=== PATIENT | male | born 1955 | race Caucasian/White ===

== ENCOUNTER 2020-12-07 18:50 | Inpatient (IN) | payer MEDICARE ==
[~2020-12-07] VITALS: Ht 175.3 cm; Wt 89.1 kg
[~2020-12-07 18:50] MED LIST: ACCUPRIL40 MG PO; ASPIRIN EC81 MG PO; BACTRIM D.S. TAB1 EA PO; CATAPRES0.1 MG PO; CHLORASEPTIC LOZ PO; CHLORASEPTIC177 ML PO; FELODIPINE ER10 MG PO; GLUCOVANCE 5-51 EACH PO; LOPRESSOR50 MG PO; NEURONTIN300 MG PO; NITRO-TIME6.5 MG PO; PERCOCET 5/325 T1 EA PO; PROTONIX40 MG PO; TOPROL XL50 MG PO; ZOCOR40 MG PO
[2020-12-07 20:17] LABS: HEMOGLOBIN 11.1 gm/dl (14.0-17.5); RED BLOOD COUNT 3.41 M/UL (4.20-5.50); WHITE BLOOD COUNT 7.2 K/UL (4.5-11.0)
[2020-12-08] MEDS ORDERED: AMLODIPINE BESY10 MG PO (00:50)
[2020-12-08] MEDS ORDERED: ISOSORBIDE MONO30 MG PO (00:50)
[2020-12-08] MEDS ORDERED: RANOLAZINE ER500 MG PO (00:51)
[2020-12-08] MEDS ORDERED: CLOPIDOGREL75 MG PO (00:51)
[2020-12-08] MEDS ORDERED: METFORMIN HCL1000 MG PO (00:52)
[2020-12-08] MEDS ORDERED: LISINOPRIL-HCT1 EAC1 PO (00:52)
[2020-12-08 02:43] LABS: HEMOGLOBIN 10.8 gm/dl (14.0-17.5); RED BLOOD COUNT 3.31 M/UL (4.20-5.50)
[2020-12-08 02:47] LABS: WHITE BLOOD COUNT 9.4 K/UL (4.5-11.0)
[2020-12-08] MEDS ORDERED: HUMALOG 10100 UNITS/ SC (11:23)
[2020-12-08] MEDS ORDERED: ATORVASTATIN CA20 MG PO (11:23)
== END 2020-12-08 12:48 | disposition short-term general hospital (02) | DRG 280 ==
LOC: ER1 18:50 → PROG CARE 21:09 → CDU 21:09 → PROG CARE 12-08 00:07
PROVIDERS: Internal Medicine; ADMIT Internal Medicine
PROC: 4A023N7 Measurement of Cardiac Sampling and Pressure, Left Heart, Percutaneous Approach (ICD-10-PCS; principal; 2020-12-07)
PROC: B211YZZ Fluoroscopy of Multiple Coronary Arteries using Other Contrast (ICD-10-PCS; 2020-12-07)
PROC: 4A033BC Measurement of Arterial Pressure, Coronary, Percutaneous Approach (ICD-10-PCS; 2020-12-07)
DX: I21.4 Non-ST elevation (NSTEMI) myocardial infarction (principal); J96.01 Acute respiratory failure with hypoxia; J81.0 Acute pulmonary edema; E87.3 Alkalosis; N17.9 Acute kidney failure, unspecified; I13.0 Hypertensive heart and chronic kidney disease with heart failure and stage 1 through stage 4 chronic kidney disease, or unspecified chronic kidney disease; I25.10 Atherosclerotic heart disease of native coronary artery without angina pectoris; N18.9 Chronic kidney disease, unspecified; I50.9 Heart failure, unspecified; E87.6 Hypokalemia; N20.0 Calculus of kidney; G89.29 Other chronic pain; Z20.822 Contact with and (suspected) exposure to COVID-19; R00.0 Tachycardia, unspecified; I45.10 Unspecified right bundle-branch block; E11.40 Type 2 diabetes mellitus with diabetic neuropathy, unspecified; Z88.0 Allergy status to penicillin; Z82.49 Family history of ischemic heart disease and other diseases of the circulatory system; Z90.49 Acquired absence of other specified parts of digestive tract; Z95.1 Presence of aortocoronary bypass graft; E11.22 Type 2 diabetes mellitus with diabetic chronic kidney disease
CPT/HCPCS: 36415; 36600; 71045; 71046; 71250; 80048; 80053; 80061; 80307; 81001; 82550; 82553; 82570; 82607; 82746; 82803; 83036; 83690; 83935; 84132; 84156; 84300; 84439; 84443; 84484; 84550; 85025; 85045; 85347; 85379; 85610; 85730; 93005; 94660; 94760; 99285; C1725; C1769; C1887; J0461; J1644; J1650; J1940; J2270; J2370; J2405; J7040; J7120; Q9965; U0002

== ENCOUNTER 2020-12-22 14:58 | Observation (INO) | payer MEDICARE ==
[~2020-12-22] VITALS: Ht 175.3 cm; Wt 84.2 kg
[~2020-12-22 14:58] MED LIST changes: +AMLODIPINE BESY10 MG PO; +ATORVASTATIN CA20 MG PO; +CLOPIDOGREL75 MG PO; +HUMALOG 10100 UNITS/ SC; +ISOSORBIDE MONO30 MG PO; +LISINOPRIL-HCT1 EAC1 PO; +METFORMIN HCL1000 MG PO; +RANOLAZINE ER500 MG PO
[2020-12-22 17:13] LABS: HEMOGLOBIN 10.4 gm/dl (14.0-17.5); RED BLOOD COUNT 3.26 M/UL (4.20-5.50); WHITE BLOOD COUNT 6.5 K/UL (4.5-11.0)
[2020-12-22] MEDS ORDERED: GLUCOPHAGE1000 MG PO (22:49)
[2020-12-22] MEDS ORDERED: ASPIRIN EC81 MG PO (22:51)
[2020-12-22] MEDS ORDERED: EFFIENT10 MG PO (22:52)
[2020-12-22] MEDS ORDERED: RANOLAZINE ER500 MG PO (22:53)
[2020-12-22] MEDS ORDERED: PROTONIX 40 MG40 M1 PO (22:55)
[2020-12-22] MEDS ORDERED: VALSARTAN80 MG PO (22:56)
[2020-12-22] MEDS ORDERED: METOPROLOL SUC100 MG PO (22:57)
[2020-12-22] MEDS ORDERED: LASIX80 MG PO (23:00)
[2020-12-22] MEDS ORDERED: NITROSTAT 0.40.4 MG SL (23:00)
[2020-12-23 04:24] LABS: HEMOGLOBIN 10.5 gm/dl (14.0-17.5); RED BLOOD COUNT 3.34 M/UL (4.20-5.50); WHITE BLOOD COUNT 6.5 K/UL (4.5-11.0)
[2020-12-23] MEDS ORDERED: LIPITOR80 MG PO (22:56)
[2020-12-23] MEDS ORDERED: DIABETA 5 MG TAB5 MG PO (23:02)
--- NOTE | 2020-12-24 00:51 | NUR ---
PT WENT INTO [facility] JUST AFTER MIDNIGHT. HOSPITALIST AND ON- CALL MANAGER TELEMARKETING. SINCE PT IS RATE CONTROLLED, WE WILL NOTIFY DR CAMEJO OF THIS CHANGE.
[2020-12-24] MEDS ORDERED: LASIX80 MG PO (12:29)
[2020-12-24] MEDS ORDERED: ZAROXOLYN/DIUL2.5 MG PO (12:29)
== END 2020-12-24 12:47 | disposition home or self-care (01) ==
LOC: ER1 14:58 → CDU 18:34 → M/S 18:34
PROVIDERS: Physician Assistant; ADMIT Internal Medicine
DX: I13.0 Hypertensive heart and chronic kidney disease with heart failure and stage 1 through stage 4 chronic kidney disease, or unspecified chronic kidney disease (principal); E11.22 Type 2 diabetes mellitus with diabetic chronic kidney disease; N18.30 Chronic kidney disease, stage 3 unspecified; I50.9 Heart failure, unspecified; D63.1 Anemia in chronic kidney disease; I25.10 Atherosclerotic heart disease of native coronary artery without angina pectoris; I21.3 ST elevation (STEMI) myocardial infarction of unspecified site; Z20.822 Contact with and (suspected) exposure to COVID-19; Z95.5 Presence of coronary angioplasty implant and graft; Z95.1 Presence of aortocoronary bypass graft; Z88.0 Allergy status to penicillin; Z79.84 Long term (current) use of oral hypoglycemic drugs; Z79.82 Long term (current) use of aspirin; Z79.899 Other long term (current) drug therapy; Z87.442 Personal history of urinary calculi
CPT/HCPCS: ECHO; 36415; 71045; 80053; 82550; 82553; 82962; 83874; 83880; 84484; 85025; 92950; 93005; 93306; 94640; 94760; 96374; 96376; 99285; G0378; J1940; U0002

== ENCOUNTER 2020-12-25 01:35 | Emergency (ER) | payer MEDICARE ==
[~2020-12-25 01:35] MED LIST changes: +DIABETA 5 MG TAB5 MG PO; +EFFIENT10 MG PO; +GLUCOPHAGE1000 MG PO; +LASIX80 MG PO; +LIPITOR80 MG PO; +METOPROLOL SUC100 MG PO; +NITROSTAT 0.40.4 MG SL; +PROTONIX 40 MG40 M1 PO; +VALSARTAN80 MG PO; +ZAROXOLYN/DIUL2.5 MG PO
[2020-12-25 04:47] LABS: HEMOGLOBIN 10.7 gm/dl (14.0-17.5); RED BLOOD COUNT 3.31 M/UL (4.20-5.50)
== END 2020-12-25 04:12 | disposition expired ==
LOC: ER1 01:35
PROVIDERS: Family Medicine
DX: I46.9 Cardiac arrest, cause unspecified (principal); I50.9 Heart failure, unspecified; E11.9 Type 2 diabetes mellitus without complications
CPT/HCPCS: 31500; 36600; 80053; 81001; 82550; 82553; 82803; 83874; 84484; 85025; 92950; 93005; 94002; 94760; 99285; J0171; J0282; J0461; J2001; J7070